=== PATIENT | female | born 1995 ===

== ENCOUNTER 2019-09-28 16:24 | Emergency (ER) | payer SELFPAY ==
[~2019-09-28] VITALS: Ht 172.7 cm; Wt 73.0 kg
[2019-09-28] MEDS ORDERED: IBUPROFEN 600MG TABLET PO ONE (18:15)
[2019-09-28 19:26] VITALS: BP 129/78
[2019-09-28] MEDS ORDERED: HYDROCODONE/ACETAMINOPHEN 5/325MG TABLET PO ONE (19:30)
== END 2019-09-28 19:31 | disposition home or self-care (01) ==
LOC: ER 16:24
DX: S63.114A Dislocation of metacarpophalangeal joint of right thumb, initial encounter (principal); Y04.0XXA Assault by unarmed brawl or fight, initial encounter; Y93.89 Activity, other specified; Y92.89 Other specified places as the place of occurrence of the external cause; Y99.8 Other external cause status
CPT/HCPCS: 73130; 81025; 99283